=== PATIENT | female | born 1945 | race Caucasian/White ===

== ENCOUNTER → 2017-03-31 | Outpatient (CLI) | payer OTHER, MEDICARE ==
[~2017-03-31] MED LIST: AMLH550 PO; ASCA500 PO; B-COCAP2 PO; EZET10TA63 PO; FAMO20TA11 PO; OMEG10007 PO; PRD/1 PO; VERA180T15 PO
[2017-03-31 15:41] LABS: BASO % 0.5 %; BASO ABS # 0.04 K/uL (0-0.2); COMPLETE YES; EOS % 2.7 %; HEMATOCRIT 46.6 % (37-47); LYMPH % 28.6 %; LYMPH ABS # 2.24 K/uL (1.2-3.4); MEAN CELL VOLUME 88.1 fL (80-100); MEAN CORPUSCULAR HEMOGLOBIN 28.9 pg (25-34); MEAN CORPUSCULAR HGB CONC 32.8 g/dl (32-36); MEAN PLATELET VOLUME 10.3 fL (7.4-10.4); MONO % 6.4 %; NEUT % 61.8 %; PLATELET COUNT 252 K/uL (130-400); RED BLOOD COUNT 5.29 M/uL (4.2-5.4); WHITE BLOOD COUNT 7.84 K/uL (4.8-10.8)
--- NOTE | 2017-03-31 16:02 | DIAGNOSTIC IMAGING REPORT ---
RIGHT ANKLE 3 VIEWS CLINICAL HISTORY: Osteopenia. Rheumatoid arthritis. FINDINGS: 3 views of the right ankle are obtained. No prior studies are available for comparison at the time of dictation. The skeletal structures are osteopenic. No acute fracture is seen. 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 The ankle mortise is intact. No erosive change is identified. No joint effusion is seen. There is soft tissue swelling around the ankle and in the visualized right lower extremity. A tiny plantar calcaneal enthesophyte is observed. IMPRESSION: 1. Soft tissue edema with no acute bony abnormality identified. 2. 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 Electronically signed by: Corey Church M.D. 03/31/2017 4:01 PM Dictated Date/Time: 03/31/2017 3:59 PM
[2017-03-31 16:20] LABS: ALT/SGPT 28 U/L (12-78); AST/SGOT 17 U/L (15-37); CALCIUM 9.3 mg/dl (8.5-10.1); CREATININE 0.62 mg/dl (0.60-1.20)
[2017-03-31 16:24] LABS: ALKALINE PHOSPHATASE 83 U/L (45-117)
== END | disposition home or self-care (01) ==
LOC: C.RAD1850 14:49
PROVIDERS: ATTEND Internal Medicine Rheumatology
DX: K29.70 Gastritis, unspecified, without bleeding (principal); Z79.52 Long term (current) use of systemic steroids; M85.80 Other specified disorders of bone density and structure, unspecified site; M06.9 Rheumatoid arthritis, unspecified; M25.571 Pain in right ankle and joints of right foot

== ENCOUNTER → 2017-04-20 | Outpatient (CLI) | payer OTHER, MEDICARE | END | disposition home or self-care (01) | LOC: C.MAMM 14:50 | PROVIDERS: ATTEND Internal Medicine Rheumatology | DX: M06.9 Rheumatoid arthritis, unspecified (principal); M81.0 Age-related osteoporosis without current pathological fracture; M85.88 Other specified disorders of bone density and structure, other site ==

== ENCOUNTER → 2017-05-23 | Outpatient (CLI) | payer OTHER, MEDICARE ==
[2017-05-23 17:48] LABS: CALCIUM URINE 16.8 mg/dl
[2017-05-23 17:50] LABS: CREATININE 0.58 mg/dl (0.60-1.20)
== END | disposition home or self-care (01) ==
LOC: C.LABSPEC 11:30
PROVIDERS: ATTEND Internal Medicine Rheumatology
DX: E55.9 Vitamin D deficiency, unspecified (principal); N20.0 Calculus of kidney; M25.571 Pain in right ankle and joints of right foot; M81.0 Age-related osteoporosis without current pathological fracture

== ENCOUNTER → 2017-08-28 | Outpatient (CLI) | payer OTHER, MEDICARE | END | disposition home or self-care (01) | LOC: C.RDSM 14:04 | PROVIDERS: ATTEND Family Medicine | DX: M25.561 Pain in right knee (principal) ==

== ENCOUNTER → 2017-08-28 | Outpatient (CLI) | payer OTHER, MEDICARE ==
--- NOTE | 2017-08-28 19:36 | DIAGNOSTIC IMAGING REPORT ---
NUCLEAR MEDICINE PARATHYROID SCAN CLINICAL HISTORY: HYPERPARATHYROIDISM. COMPARISON STUDY: No previous studies for comparison. TECHNIQUE: 22 mCi of technetium 99m Cardiolite was injected IV at 3:20 PM on August 28, 2017. Planar and SPECT imaging was performed 15 minutes and 3 hours following injection. FINDINGS: Expected radiotracer distribution is noted. There are no areas of radiotracer retention. No abnormal radiotracer uptake is identified on the 15 minute or 3 hour delayed phase images. IMPRESSION: No scintigraphic evidence of a parathyroid adenoma. Electronically signed by: Esteban Meehan M.D. 08/28/2017 7:35 PM Dictated Date/Time: 08/28/2017 7:31 PM
== END | disposition home or self-care (01) ==
LOC: C.NUCL 15:02
PROVIDERS: ATTEND Internal Medicine Endocrinology, Diabetes & Metabolism
DX: E21.3 Hyperparathyroidism, unspecified (principal)

== ENCOUNTER → 2017-09-08 | Outpatient (CLI) | payer OTHER, MEDICARE ==
[2017-09-08 17:15] LABS: CALCIUM URINE 14.5 mg/dl
== END | disposition home or self-care (01) ==
LOC: C.LABSPEC 13:41
PROVIDERS: ATTEND Internal Medicine Endocrinology, Diabetes & Metabolism
DX: E21.3 Hyperparathyroidism, unspecified (principal)